=== PATIENT | female | born 1985 | race Caucasian/White ===

== ENCOUNTER 2021-09-23 07:32 | Emergency (ER) | payer BC, SELFPAY ==
[2021-09-23 07:38] VITALS: BP 151/95; PULSE 97; RESP 18; TEMP 36.1; O2SAT 98; BMI 26.6
--- NOTE | 2021-09-23 08:18 | CT_ITS ---
Final Report Patient: ASHISH FONSECA Facility:?[facility] Patient ID:?[id number] Site Patient ID:?[id number]. Site :?[id number] Study:?CT Head W/O-09/23/2021 8:33:15 AM Ordering Physician:?Lorenza Epps Final Report: INDICATION: Right-sided headache. TECHNIQUE: CT head without contrast. COMPARISON: None. FINDINGS: CSF spaces: Within normal limits for age. Brain parenchyma and extra-axial spaces: The ryan-white differentiation is normal. No sign of mass, hemorrhage, or midline shift. No extra-axial fluid collection. Skull base and calvarium: The visualized paranasal sinuses and mastoid air cells demonstrate no acute or significant findings. The visualized orbits are grossly unremarkable. No skull fractures. IMPRESSION: Unremarkable noncontrast head CT. Please note that all CT scans at this facility use dose modulation, iterative reconstruction, and/or weight-based dosing when appropriate to reduce radiation dose to as low as reasonably achievable. Dictated by Noam Wooten MD @ 09/23/2021 8:43:50 AM (Electronic Signature)
[2021-09-23 08:52] LABS: Basophils Absolute Auto 0.04 K/uL (0.00-0.30); Basophils Percent Auto 0.6 % (0.0-3.0); Eosinophils Absolute Auto 0.13 K/uL (0.00-0.50); Eosinophils Percent Auto 2.1 % (0.0-7.0); Hematocrit 40.9 % (33.0-51.0); Hemoglobin* 13.3 gm/dL (12.0-16.0); Immature Granulocytes Abs Auto 0.02 K/uL (0.00-0.30); Lymphocytes Absolute Auto 2.01 K/uL (0.90-2.90); Lymphocytes Percent Auto 32.3 % (20-44); Mean Corpuscular HGB Conc 33 gm/dL (32-36); Mean Corpuscular Hemoglobin 29 pg (26-34); Mean Corpuscular Volume 89 fL (80-100); Monocytes Percent Auto 7.1 % (0.0-11.0); Neutrophils Absolute Auto 3.59 K/uL (1.7-7.0); Neutrophils Percent Auto 57.6 % (42.0-72.0); Platelet Count* 253 K/uL (140-440); RDW Coefficient of Variation % 13.1 % (11.5-15.5); Red Blood Count 4.62 m/uL (4.00-5.20); White Blood Count* 6.23 K/uL (4.50-11.00)
[2021-09-23] MEDS: METOCLOPRAMIDE HCL 5 MG/ML INJ 10 MG IVP (09:02)
[2021-09-23] MEDS: KETOROLAC 30 MG/ML inj IVP (09:02)
[2021-09-23] MEDS: diphenhydrAMINE 50 MG/ML inj 25 MG IVP (09:02)
[2021-09-23] MEDS: 0.9 % SODIUM CHLORIDE 1000 ml 1,000 ML IV (09:04)
[2021-09-23 09:09] LABS: Slide Review Reflex No
[2021-09-23 09:12] LABS: Chloride* 103 mmol/L (96-114); Potassium* 3.5 mmol/L (3.6-5.1); Sodium* 138 mmol/L (135-149)
[2021-09-23 09:15] LABS: Creatinine* 0.7 mg/dL (0.5-1.5); Est. Creatinine Clearance* 96.86; Estimated Glomerular Filt Rate 116 ml/min
[2021-09-23 09:16] LABS: Blood Urea Nitrogen* 12 mg/dL (5-24); Calcium* 9.6 mg/dL (8.4-10.6); Carbon Dioxide* 27 mmol/L (20-32); Glucose* 115 mg/dL (60-115)
[2021-09-23 09:23] LABS: C Reactive Protein* < 0.5 mg/dL (0.5-1.0)
--- NOTE | 2021-09-23 09:25 | ED_ITS ---
HPI - Headache General Date Seen: 09/23/21 Chief Complaint: Dental/Oral/Mouth Injury/Pain Stated Complaint: Right side tooth infection Time Seen by Provider: 09/23/21 07:54 Source: patient and family Mode of arrival: ambulatory Limitations: no limitations History of Present Illness HPI Narrative: Patient is 36-year-old female presents here with her significant other for which she describes is migraine headache in the setting of not having migraines before. The last 12-24 hours she has noted right-sided head discomfort, along with a feeling of altered sensation over the right side of her face. She initially described as numbness to me. She wonders if this is due to a dental issues but really has no tooth pain associated with this. Pain radiates from behind her right eye to the her back of her head. No thunderclap presentation was more gradual. She has done some reading online and wonders if the tooth infection is gone up into her sinus. Has no nasal discharge however with this there is some pain around her right ear also. She denies any fevers chills or sweats. She says she has a bit of a stiff neck associated with this but no rash. She has had no nausea vomiting, and the light does bother her eyes slightly. No history of trauma or falls, and there is no family history of migraine headaches in any the female family members. She has not tried any treatment for this, and came to the emergency room thinking this may be a dental issue. MD elicited complaint: migraine Onset (ago): hour(s) Onset description: gradually Location: right, frontal, temporal and occipital Severity: severe Quality & Timing: aching, throbbing and constant Exacerbating factors: movement of head/neck, sitting/standing, light and noise Relieving factors: nothing Context: occurred at rest Associated symptoms: none and neck stiffness Treatments prior to arrival: none Related Data Home Medications Medication Instructions Recorded Confirmed No Known Home Medications 09/23/21 09/23/21 Allergies Allergy/AdvReac Type Severity Reaction Status Date / Time No Known Drug Allergies Allergy Verified 09/23/21 07:38 Review of Systems Status of ROS: Reports: 10 or more systems reviewed and unremarkable except as noted in History and below PFSH PFS Social History Smoking Status: Former smoker Do you use any of these nicotine containing products: E-Cigarettes and Vaping Products How often do you have a drink containing alcohol: 2-3 times a week How often do you have six or more drinks on one occasion: Less than monthly AUDIT-C Alcohol total score: 4 Non-prescribed substance use: denies use Exam Narrative: Exam Narrative: Patient sitting in room 4 dental chair in no apparent distress speaking to me normally lucid oriented x3. Her pupils are equal round reactive to light there is no scleral icterus redness TMs are normal oropharynx normal there is no adenopathy anterior posterior chains her neck is supple full range of motion is listed with absence of meningismus. I do not see any evidence of any redness swelling or noted bowl pain on palpation over the right side of her head around her ear or around her jaw. There is no swelling noted mouth opening is normal on palpation of her teeth reveals no tenderness at all and her gum seem normal. Oropharynx is otherwise normal with no tonsillar enlargement redness swelling there is no lymphadenopathy anterior posterior chains notable in her thyroid is normal midline palpable. Chest is clear heart sounds are normal skin was no petechiae or rashes fine motor movements fingers nose testing are normal and she is able to walk normally. Const: Vital Signs, click to edit/add: Vital Signs - 24 hr 09/23/21 07:38 Temperature 97.0 F L Pulse Rate [Right Pulse Oximeter] 97 Respiratory Rate 18 Blood Pressure [Le ft Upper Arm] 151/95 H Pulse Oximetry 98 Documenting provider has reviewed patient's vital signs: yes Common normals: no apparent distress Course Course Hospital Course: I discussed with the patient that all her laboratory tests were normal her head CT was normal she reported to me her headache was a lot better with the treatment. Fell long enough to go home. I think this would be reasonable now to let her go home she has no high risk features. I do believe this is most likely a migraine headache. She has worsening signs and symptoms she needs to come back and be seen, she was comfortable with this plan. Vital Signs Vital signs: Initial Vital Signs Temperature 97.0 F L 09/23/21 07:38 Temperature Source Temporal Artery Scan 09/23/21 07:38 Pulse Rate 97 09/23/21 07:38 Respiratory Rate 18 09/23/21 07:38 Blood Pressure 151/95 H 09/23/21 07:38 Blood Pressure Mean 113 09/23/21 07:38 Pulse Oximetry 98 09/23/21 07:38 Oxygen Delivery Method 09/23/21 07:38 Vital Signs Temperature 97.0 F L 09/23/21 07:38 Pulse Rate 97 09/23/21 07:38 Respiratory Rate 18 09/23/21 07:38 Blood Pressure 151/95 H 09/23/21 07:38 Pulse Oximetry 98 09/23/21 07:38 Temperature 97.0 F L 09/23/21 07:38 Pulse Rate 97 09/23/21 07:38 Respiratory Rate 18 09/23/21 07:38 Blood Pressure 151/95 H 09/23/21 07:38 Pulse Oximetry 98 09/23/21 07:38 MDM - Headache MDM Narrative Medical decision making narrative: Life-threatening differential diagnosis include subarachnoid hemorrhage, meningitis, encephalitis, carbon monoxide poisoning, and intracerebral hemorrhage. Other differential diagnosis include but not limited to migraine, cluster headache, tension headache, [employer] vasculitis, mass lesion, temporal arteritis, click acute closed angle glaucoma, septal and trigeminal neuralgia, sinusitis, closed head injury, and stroke I discussed with the patient that I think that this is more of a migraine I do not think this is a dental issue I would suggest at this point IV fluids laboratory tests CT scan for further delineation. She looks however well. Neurologically intact. Medical Records Attestation: I reviewed the patient's medical records. Lab Data Labs: Lab Results 09/23/21 09/23/21 09/23/21 Range/Units 08:45 08:45 08:45 WBC 6.23 (4.50-11.00) K/uL RBC 4.62 (4.00-5.20) m/uL Hgb 13.3 (12.0-16.0) gm/dL Hct 40.9 (33.0-51.0) % MCV 89 (80-100) fL MCH 29 (26-34) pg MCHC 33 (32-36) gm/dL RDW Coeff of [place] 13.1 (11.5-15.5) % Plt Count 253 (140-440) K/uL Neut % (Auto) 57.6 (42.0-72.0) % Lymph % (Auto) 32.3 (20-44) % Edmonson % (Auto) 7.1 (0.0-11.0) % Eos % (Auto) 2.1 (0.0-7.0) % Baso % (Auto) 0.6 (0.0-3.0) % Neut # (Auto) 3.59 (1.7-7.0) K/uL Lymph # (Auto) 2.01 (0.90-2.90) K/uL Edmonson # (Auto) 0.40 (0.00-0.90) K/UL Eos # (Auto) 0.13 (0.00-0.50) K/uL Baso # (Auto) 0.04 (0.00-0.30) K/uL Abs Immat Gran (auto) 0.02 (0.00-0.30) K/uL Sodium 138 (135-149) mmol/L Potassium 3.5 L (3.6-5.1) mmol/L Chloride 103 (96-114) mmol/L Carbon Dioxide 27 (20-32) mmol/L BUN 12 (5-24) mg/dL Creatinine 0.7 (0.5-1.5) mg/dL Estimated Creat Clear 96.86 Estimated GFR 116 ml/min Glucose 115 (60-115) mg/dL Calcium 9.6 (8.4-10.6) mg/dL C-Reactive Protein < 0.5 L (0.5-1.0) mg/dL HCG, Qual Negative (Negative) Discharge Plan Discharge Clinical Impression: Head ache, Migraine Patient Disposition: Home w/ Parent or Adult Condition: Improved Instructions: Migraine Headache (ED) Additional Instructions: Home rest and sleep. Your laboratory work including CT scan did not show any acute issues. Would recommend taking it easy for the rest of the day in you may take some ibuprofen 800 mg when you get home along with some caffeine. Follow- up with primary care for recheck as needed. Return here if worsening signs and symptoms. As I discussed with you I do not see evidence of a tooth issue causing this. But of visit your dentist if he still have ongoing concerns would be appropriate Prescriptions: No Action No Known Home Medications 0RF Follow Up/Referrals: Robinson Crook MD [Primary Care Provider] - Stand Alone Forms: [employer] Info Instructions
[2021-09-23 09:36] LABS: HCG Qualitative Serum* Negative (Negative)
== END 2021-09-23 10:44 | disposition home or self-care (01) ==
PROVIDERS: Emergency Provider Family Medicine; PCP Family Medicine
DX: R51.9 Headache, unspecified (principal)
CPT/HCPCS: 36415; 70450; 80048; 84703; 85025; 86140; 96374; 96375; 99284; J1200; J1885; J2765; J7030

== ENCOUNTER 2021-11-26 17:37 | Emergency (ER) | payer BC, SELFPAY ==
[2021-11-26 18:10] VITALS: BP 143/104; PULSE 102; RESP 16; TEMP 37; O2SAT 100; BMI 29.2
[2021-11-26 19:02] LABS: Strep A DNA Probe* DETECTED (No Detected)
--- NOTE | 2021-11-26 19:21 | ED.GENADULT ---
HPI - General Adult General Date Seen: 11/26/21 Chief complaint: Sore Throat Stated complaint: Throat pain, fever Time Seen by Provider: 11/26/21 19:00 Source: patient History of Present Illness HPI narrative: Patient is a 36-year-old woman who presents with couple of days sore throat and bilateral ear pain. Subjective fever. No other symptoms. Concerned about possible strep throat. Declines COVID testing. Related Data Home Medications Medication Instructions Recorded Confirmed No Known Home Medications 09/23/21 11/26/21 Allergies Allergy/AdvReac Type Severity Reaction Status Date / Time No Known Drug Allergies Allergy Verified 11/26/21 18:16 Review of Systems Status of ROS: Reports: 6 or more systems reviewed and unremarkable except as noted in History and below PFSH PFS Social History Smoking Status: Former smoker Do you use any of these nicotine containing products: E-Cigarettes and Vaping Products Second hand tobacco smoke exposure: No How often do you have a drink containing alcohol: 2-3 times a week How often do you have six or more drinks on one occasion: Less than monthly AUDIT-C Alcohol total score: 4 Non-prescribed substance use: denies use service: No Exam Narrative: Exam Narrative: Vital signs as noted above. In general, an alert, well-appearing patient. Voice is normal. Head: Normocephalic, atraumatic. Eyes: Pupils are equal reactive. Extraocular movements are full. Conjunctivae are normal. ENT: Mucous membranes are moist. Throat is normal, no significant erythema, tonsils show no edema or exudate. Neck: Supple with a couple of enlarged anterior cervical nodes. Heart: Regular rate and rhythm. No murmur or rub. Lungs: Clear bilaterally. No increased work of breathing, crackles or wheezes. Neurologic: Patient is alert and oriented to person and place. Speech is fluent. Face is symmetric. Moves all extremities equally. Affect: Normal. Skin: Warm and dry. Well perfused. Const: Vital Signs, click to edit/add: Vital Signs - 24 hr 11/26/21 18:10 Temperature 98.6 F Pulse Rate [Right Pulse Oximeter] 102 H Respiratory Rate 16 Blood Pressure [Ri ght Upper Arm] 143/104 H Pulse Oximetry 100 Oxygen Delivery Me thod Room Air Course Course Hospital Course: Strep screen was obtained and returned positive. Will treat with amoxicillin. Ibuprofen or Tylenol as needed. No evidence of exudate of tonsillitis or abscess. Return for worsening. Vital Signs Vital signs: Initial Vital Signs Temperature 98.6 F 11/26/21 18:10 Temperature Source Temporal Artery Scan 11/26/21 18:10 Pulse Rate 102 H 11/26/21 18:10 Respiratory Rate 16 11/26/21 18:10 Blood Pressure 143/104 H 11/26/21 18:10 Blood Pressure Mean 117 11/26/21 18:10 Blood Pressure Position Sitting 11/26/21 18:10 Pulse Oximetry 100 11/26/21 18:10 Oxygen Delivery Method 11/26/21 18:10 Vital Signs Temperature 98.6 F 11/26/21 18:10 Pulse Rate 102 H 11/26/21 18:10 Respiratory Rate 16 11/26/21 18:10 Blood Pressure 143/104 H 11/26/21 18:10 Pulse Oximetry 100 11/26/21 18:10 Oxygen Delivery Method 11/26/21 18:10 Temperature 98.6 F 11/26/21 18:10 Pulse Rate 102 H 11/26/21 18:10 Respiratory Rate 16 11/26/21 18:10 Blood Pressure 143/104 H 11/26/21 18:10 Pulse Oximetry 100 11/26/21 18:10 Oxygen Delivery Method 11/26/21 18:10 Medical Decision Making Lab Data Labs: Lab Results 11/26/21 Range/Units 18:23 Group A Strep DNA DETECTED (No Detected) Discharge Plan Discharge Clinical Impression: Strep pharyngitis Patient Disposition: Home, Self-Care Condition: Stable Instructions: Strep Throat (DC) Additional Instructions: Antibiotics as prescribed. Ibuprofen or Tylenol as needed. Return for worsening. Prescriptions: No Action No Known Home Medications Follow Up/Referrals: Robinson Crook MD [Primary Care Provider] - Stand Alone Forms: [employer] Info Instructions
== END 2021-11-26 19:49 | disposition home or self-care (01) ==
PROVIDERS: Emergency Provider Emergency Medicine; PCP Family Medicine
DX: J02.0 Streptococcal pharyngitis (principal)
CPT/HCPCS: 87651; 99283; 99284

== ENCOUNTER 2022-11-08 14:15 | Emergency (ER) | payer BC, SELFPAY ==
[2022-11-08 14:24] VITALS: BP 157/114; PULSE 103; RESP 18; TEMP 36.6; O2SAT 97; BMI 26.6
[2022-11-08 15:21] LABS: Strep A DNA Probe* DETECTED (Not Detectd)
--- NOTE | 2022-11-08 15:33 | ED_ITS ---
HPI - General Adult General Chief complaint: Fever Stated complaint: Sore throat Time Seen by Provider: 11/08/22 15:26 History of Present Illness HPI narrative: This 37-year-old female comes in reporting sore throat for the past 2 or 3 days. She does not have any cough or nasal congestion. She is suspicious of a strep infection and is requesting a strep test but denies having COVID, influenza test. Related Data Previous Rx's Medication Instructions Recorded amoxicillin 500 mg capsule 500 mg PO TID 7 days #21 caps 11/08/22 ketorolac 10 mg tablet 10 mg PO TID 5 days #15 tabs 11/08/22 Allergies Allergy/AdvReac Type Severity Reaction Status Date / Time No Known Drug Allergies Allergy Verified 11/08/22 14:23 Review of Systems Status of ROS: Reports: 10 or more systems reviewed and unremarkable except as noted in History and below Narrative: Constitutional: No fevers, no weight gain or loss. Eyes: No discharge. No vision changes. HENT: No congestion, no ear pain. Sore throat. She reports a headache. Cardiovascular: No chest pain, no palpitations. Respiratory: No shortness of breath, no wheezes, no cough. Gastrointestinal: No abdominal pain, no vomiting, no diarrhea. Genitourinary: No dysuria, no hematuria. Musculoskeletal: Normal range of motion. Skin: No rashes, no pruritis. Neurological: No dizziness, weakness, sensory change, speech change. Endo/Heme/Allergies: No bruising or bleeding. No polydipsia. Pysch: no suicidality, no anxiety, no insomnia. All other systems reviewed and are negative. PFSH [facility] Social History Smoking Status: Former smoker Do you use any of these nicotine containing products: E-Cigarettes and Vaping Products Second hand tobacco smoke exposure: No How often do you have a drink containing alcohol: 2-3 times a week How often do you have six or more drinks on one occasion: Less than monthly AUDIT-C Alcohol total score: 4 Non-prescribed substance use: denies use service: No Exam Narrative: Exam Narrative: Constitutional: Well-developed, well-nourished, no acute distress. HEENT: Normocephalic, atraumatic. Oropharynx has erythema without exudate or tonsillar hypertrophy. Neck: Normal range of motion. Nontender. Supple. Heart: Intact distal pulses. Lungs: No chest discomfort. No wheezes, rhonchi, or rales. Abdomen: Nontender. Back: Normal range of motion. Extremities: Normal range of motion. No injury. Skin: Intact. No rash. Warm. No erythema or pallor. Neurologic: No altered sensation. No weakness. Alert and oriented. Psychiatric: No suicidality. No anxiety or depression. No insomnia. Nursing notes and vitals signs are reviewed. Const: Vital Signs, click to edit/add: Vital Signs - 24 hr 11/08/22 14:24 Temperature 97.9 F Pulse Rate [Pulse Oximeter] 103 H Respiratory Rate 18 Blood Pressure [Ri ght Upper Arm] 157/114 H Pulse Oximetry 97 Oxygen Delivery Me thod Room Air Course Vital Signs Vital signs: Initial Vital Signs Temperature 97.9 F 11/08/22 14:24 Temperature Source Temporal Artery Scan 11/08/22 14:24 Pulse Rate 103 H 11/08/22 14:24 Respiratory Rate 18 11/08/22 14:24 Blood Pressure 157/114 H 11/08/22 14:24 Blood Pressure Mean 128 H 11/08/22 14:24 Blood Pressure Position Sitting 11/08/22 14:24 Pulse Oximetry 97 11/08/22 14:24 Oxygen Delivery Method Room Air 11/08/22 14:24 Vital Signs Temperature 97.9 F 11/08/22 14:24 Pulse Rate 103 H 11/08/22 14:24 Respiratory Rate 18 11/08/22 14:24 Blood Pressure 157/114 H 11/08/22 14:24 Pulse Oximetry 97 11/08/22 14:24 Oxygen Delivery Method Room Air 11/08/22 14:24 Temperature 97.9 F 11/08/22 14:24 Pulse Rate 103 H 11/08/22 14:24 Respiratory Rate 18 11/08/22 14:24 Blood Pressure 157/114 H 11/08/22 14:24 Pulse Oximetry 97 11/08/22 14:24 Oxygen Delivery Method Room Air 11/08/22 14:24 Medical Decision Making MDM Narrative Medical decision making narrative: A rapid strep test is performed and returns positive. The patient received an oral dose of dexamethasone 10 mg and prescriptions for amoxicillin and Toradol. She is encouraged to use Tylenol also as needed and directed. Lab Data Labs: Lab Results 11/08/22 Range/Units 14:30 Group A Strep DNA DETECTED A (Not Detectd) Discharge Plan Discharge Clinical Impression: Strep pharyngitis Patient Disposition: Home, Self-Care Condition: Unchanged Additional Instructions: Take medication as prescribed. Follow up with MD or return if worsening. Prescriptions: New amoxicillin 500 mg capsule 500 mg PO TID 7 Days Qty: 21 0RF ketorolac 10 mg tablet 10 mg PO TID 5 Days Qty: 15 0RF Follow Up/Referrals: Robinson Crook MD [Primary Care Provider] - Stand Alone Forms: [employer] Info Instructions
== END 2022-11-08 15:49 | disposition home or self-care (01) ==
LOC: ED 15:45
PROVIDERS: Emergency Provider Emergency Medicine Emergency Medical Services; PCP Family Medicine
DX: J02.0 Streptococcal pharyngitis (principal)
CPT/HCPCS: 87651; 99282; 99283; 99284

== ENCOUNTER 2023-02-21 10:44 | Emergency (ER) | payer BC, SELFPAY ==
[2023-02-21 10:59] VITALS: BP 138/102; PULSE 106; RESP 18; TEMP 36.6; O2SAT 99; BMI 30.9
--- NOTE | 2023-02-21 11:09 | ED_ITS ---
HPI - Headache General Time Seen by Provider: 11:09 Date Seen: 02/21/23 Chief Complaint: Headache/Migraine Stated Complaint: migraine Time Seen by Provider: 02/21/23 11:01 Source: patient and RN notes reviewed Mode of arrival: ambulatory Limitations: no limitations History of Present Illness HPI Narrative: Mila is 37-year-old female coming in with complaint of right-sided headache behind her eye. She has photophobia with this, phonophobia. She has vomited 4 times. She did try Tylenol and Imitrex which usually works for her. She states it is not working today. She admits stress due to Tracey, awoke at 6:30 a.m. and had the headache this morning. There is no numbness tingling, does note the right eye a maybe feels a little blurry. She drove herself in, her arms and legs are working normally. Her speech is normal. She is tearful and wonders if it is a brain tumor because her medicines are working. IA did review her chart, was in August of 2021, did have a normal CT at that point for a right-sided headache. She states it is typical cold to get them behind her right eye. She is just worried as the medicines are not working this time. She states the medicines we gave her last time did work. I see that she got normal saline, Reglan and Benadryl, Toradol and Ativan. She states she can get a ride home, reviewed with her that these are not medicines that she can not drive with because they are sedating and can affect her mental status. She has not been sick with anything, no fevers chills, no respiratory symptoms. MD elicited complaint: headache and migraine Related Data Previous Rx's Medication Instructions Recorded azithromycin 250 mg tablet See Rx Instructions PO .COMPLEX #6 01/28/23 tabs codeine 10 mg-guaifenesin 100 mg/5 10 ml feeding tube Q4-6H PRN cough 01/28/23 mL oral liquid #120 mL Allergies Allergy/AdvReac Type Severity Reaction Status Date / Time No Known Drug Allergies Allergy Verified 01/28/23 18:34 Review of Systems Status of ROS: Reports: 6 or more systems reviewed and unremarkable except as noted in History and below PFSH PFSH Social History Smoking Status: Former smoker Do you use any of these nicotine containing products: E-Cigarettes and Vaping Products Second hand tobacco smoke exposure: No How often do you have a drink containing alcohol: 2-3 times a week How often do you have six or more drinks on one occasion: Less than monthly AUDIT-C Alcohol total score: 4 Non-prescribed substance use: denies use service: No Exam Const: Vital Signs, click to edit/add: Vital Signs - 24 hr 02/21/23 10:59 02/21/23 11:16 Temperature 97.9 F 97.9 F Pulse Rate [Pulse Oximeter] 106 H 106 H Respiratory Rate 18 18 Blood Pressure [Le ft Upper Arm] 138/102 H 153/104 H Pulse Oximetry 99 97 Oxygen Delivery Me thod Room Air Patient is tearful, distressed but alert and interactive. She certainly seems anxious. She did settle down by the end of our interaction. Pupils equal round, extraocular movements intact, sclera clear. TMs are normal. No drainage from anterior nares. Oropharynx with normal mucosa, tongue protrudes midline, normal palatal elevation, no exudates or erythema. Neck is supple, no midline tenderness over back. Lungs are clear, good air entry, no wheezing or crackles. CV regular rate and rhythm, no murmur, normal S1-S2 no S3-S4. Abdomen is soft, non tender nondistended. Strength is 5 5 and symmetric throughout upper extremities, lower extremities. Normal light touch sensation. No arm drift, no tremors, gait was normal coming in, she walked in of her own accord. Documenting provider has reviewed patient's vital signs: yes Course Course ED Course: This patient and I discussed [place] [employer] recommendations for neuro imaging with headaches. She really does not support the need for neuro imaging at this time. I have reassured her that she has no neurologic changes, it is not necessarily atypical that sometimes migraine oral abortive medicines may not work. We will start with IV medicines, she will find a courtesy van driver home. She can come pick her car back up tomorrow or have somebody driving home for her today. We will see how she responds to the medicines and on guide therapy accordingly. This certainly seems like a typical headache and she did have a CT scan in August of 2021. Reevaluation(s) Time of Reevaluation #1: 12:45 Reevaluation #1: Patient is awoken, is feeling better. She has a ride home, she will call. Vital Signs Vital signs: Initial Vital Signs Temperature 97.9 F 02/21/23 10:59 Temperature Source Temporal Artery Scan 02/21/23 10:59 Pulse Rate 106 H 02/21/23 10:59 Pulse Rhythm Regular 02/21/23 10:59 Respiratory Rate 18 02/21/23 10:59 Blood Pressure 138/102 H 02/21/23 10:59 Blood Pressure Mean 114 H 02/21/23 10:59 Blood Pressure Position Supine 02/21/23 10:59 Pulse Oximetry 99 02/21/23 10:59 Vital Signs Temperature 97.9 F 02/21/23 10:59 Pulse Rate 106 H 02/21/23 10:59 Respiratory Rate 18 02/21/23 10:59 Blood Pressure 138/102 H 02/21/23 10:59 Pulse Oximetry 99 02/21/23 10:59 Temperature 97.9 F 02/21/23 11:16 Pulse Rate 106 H 02/21/23 11:16 Respiratory Rate 18 02/21/23 11:16 Blood Pressure 153/104 H 02/21/23 11:16 Pulse Oximetry 97 02/21/23 11:16 Oxygen Delivery Method Room Air 02/21/23 11:16 Medications Administered Medications: Discontinued Medications Generic Name Dose Route Start Last Admin Trade Name Freq PRN Reason Stop Dose Admin Diphenhydramine HCl 25 mg 02/21/23 11:21 02/21/23 11:43 Diphenhydramine 50 Mg/Ml Inj IVP 02/21/23 11:22 25 mg ONCE ONE Administration Sodium Chloride 1,000 mls @ 1,000 mls/hr 02/21/23 11:21 02/21/23 11:44 0.9 % Sodium Chloride 1000 Ml IV 02/21/23 12:20 1,000 mls/hr .Q1H GRETCHEN Administration Ketorolac Tromethamine 15 mg 02/21/23 11:21 02/21/23 11:43 Ketorolac 15 Mg/Ml Inj IVP 02/21/23 11:22 15 mg ONCE ONE Administration Metoclopramide HCl 10 mg 02/21/23 11:45 02/21/23 11:49 Metoclopramide Hcl 5 Mg/Ml Inj IVP 02/21/23 11:46 10 mg ONCE ONE Administration Discharge Plan Discharge Clinical Impression: Migraine Patient Disposition: Home, Self-Care Condition: Stable Instructions: Migraine Headache (ED) Additional Instructions: Go home and rest, stay hydrated. Can use Tylenol and ibuprofen per bottle directions if you have any residual headache. Would try to eat something when you feel up to it. It is important you rest and stay hydrated, would not recommend any alcohol today. These tactics can help paco further migraine headache. If your headache is worsening and not responsive to home remedies, can return for further evaluation and treatment here. Activity Level: Activity as Tolerated Discharge Diet: Regular Prescriptions: No Action azithromycin 250 mg tablet See Rx Instructions PO .COMPLEX Qty: 6 0RF Rx Instructions: For 250 mg dose pack: take 500 mg today (day 1), then 250 mg for 4 days (days 2-5) PO codeine-guaifenesin 10-100 mg/5 mL liquid 10 ml feeding tube Q4-6H PRN (Reason: cough) Qty: 120 0RF Follow Up/Referrals: Robinson Crook MD [Primary Care Provider] - Stand Alone Forms: Our Security Team Info Instructions
[2023-02-21 11:16] VITALS: BP 153/104; PULSE 106; RESP 18; TEMP 36.6; O2SAT 97
[2023-02-21] MEDS: KETOROLAC 15 MG/ML inj IVP (11:43)
[2023-02-21] MEDS: diphenhydrAMINE 50 MG/ML inj 25 MG IVP (11:43)
[2023-02-21] MEDS: 0.9 % SODIUM CHLORIDE 1000 ml 1,000 ML IV (11:44)
[2023-02-21] MEDS: METOCLOPRAMIDE HCL 5 MG/ML INJ 10 MG IVP (11:49)
[2023-02-21 12:47] VITALS: BP 135/92; PULSE 96; RESP 18; O2SAT 96
[2023-02-21 13:05] VITALS: BP 135/92; PULSE 96; RESP 18; TEMP 36.6
== END 2023-02-21 13:06 | disposition home or self-care (01) ==
PROVIDERS: Emergency Provider Family Medicine; PCP Family Medicine
DX: G43.909 Migraine, unspecified, not intractable, without status migrainosus (principal)
CPT/HCPCS: 96374; 96375; 99284; J1200; J1885; J2765; J7030

== ENCOUNTER 2024-08-20 08:07 | Emergency (ER) | payer BC, SELFPAY ==
--- OUTSIDE RECORDS SUMMARY | 2024-08-20 08:08 | XMS_ITS | Clinical Summary ---
Author Organization [employer] [facility] Address [address] [place] [id number] Care Team Providers Care Title Insurance Examiner Name Role Phone Robinson Crook MD Primary Care Provider [phone]- [phone] Allergies No known active allergies Medications ibuprofen (ADVIL; MOTRIN) 800 mg tabletIndicatio ns:Neck pain, acute,Injury of neck, subsequent encounter TAKE 1 TABLET BY MOUTH EVERY 8 HOURS NEEDED 90 tablet 0 Active acetaminophen (TYLENOL EXTRA STRGTH) 500 mg tabletIndicatio ns:Neck pain, acute,Injury of neck, subsequent encounter Take 2 tablets by mouth 3 times daily. Max acetaminophen dose: 4000mg in 24 hrs. 180 tablet 6 0 Active hydrOXYzine pamoate (VISTARIL) 50 mg capsule Take 50 mg by mouth every 6 hours if needed for Anxiety. 3 Active SUMAtriptan (IMITREX) 50 mg tabletIndicatio ns:Migraine without aura and without status migrainosus, not intractable Take 1 Tablet (50 mg) by mouth 2 times daily if needed for Migraine. Give at minimum 2hrs apart. Max Dose: 200mg per 24hrs. 20 Tablet 4 Active Active Problems Problem Noted Date Diagnosed Date Migraine without aura and wi thout status migrainosus, not intractable 12/25/2022 care in second trimester 08/06/2016 Overview (12/29/2016): Blood type AB positive [place] test negative. It's a boy! Will see Dr Crook for care while Dr Saini gone. Delivering physician Dr Saini. Patient requests Dr Armaan hernandez and care in hospital if able. Induced last 4 pregnancies. GBS POSITIVE Estimated Date of Delivery: 01/11/17 Patient's last menstrual period was 04/06/2016 (approximate). Last Tdap- 11/25/2016 Last Flu vaccine- 04/08/2010 No Known Allergies Obstetric History T4 L4 SAB0 TAB0 Ectopic0 Multiple0 Live Births1 # Outcome Date GA Lbr Sudhir/2nd Weight Sex Delivery Anes PTL Lv 5 Current 4 Term 03/09/15 39w6d JANELL 3 Term 01/19/14 40w1d F VAGINAL MARQUES N JANELL 2 Term 03/02/07 40w1d F VAGINAL MARQUES N JANELL 1 Term 12/25/04 41w0d 09:45 3.033 kg (6 lb 11 oz) F Vag JANELL Apgar1: 8 Apgar5: 9 Component Latest Ref Rng & Units 05/20/2016 05/20/2016 05/20/2016 4:00 PM 4:00 PM 4:00 PM TRICHOMONAS YEAST CLUE CELLS ANTIBODY SCREEN Negative Negative SPECIMEN EXPIRATION DATE/TIME 05/23/16 23:59 HEMOGLOBIN 12.0 - 16.0 g/dL 13.9 MCV 80 - 100 fL 88 RUBELLA IGG ANTIBODY Positive 3.27 GLUCOSE,GESTATIONAL 65 - 139 mg/dL PATIENT STATUS CHLAMYDIA PROBE N GONORRHOEAE PROBE HEMOGLOBIN A1C SCREENING <6.4 % 5.3 ABORH AB Rh Positive HBSAG Nonreactive Nonreactive HEPATITIS C ANTIBODY Non-Reactive Non-Reactive HIV-1/HIV-2 ANTIBODY Non-Reactive Non-Reactive TREPONEMA PALLIDUM Negative Negative Component Latest Ref Rng & Units 10/14/2016 10/16/2016 12/09/2016 TRICHOMONAS None Seen YEAST None Seen CLUE CELLS None Seen ANTIBODY SCREEN Negative SPECIMEN EXPIRATION DATE/TIME HEMOGLOBIN 12.0 - 16.0 g/dL 11.9 (L) MCV 80 - 100 fL 89 RUBELLA IGG ANTIBODY GLUCOSE,GESTATIONAL 65 - 139 mg/dL 117 PATIENT STATUS FASTING CHLAMYDIA PROBE Negative N GONORRHOEAE PROBE Negative HEMOGLOBIN A1C SCREENING <6.4 % ABORH HBSAG Nonreactive HEPATITIS C ANTIBODY Non-Reactive HIV-1/HIV-2 ANTIBODY Non-Reactive TREPONEMA PALLIDUM Negative Component Latest Ref Rng & Units 12/09/2016 12:02 PM Culture Streptococcus Group B Past Medical History: Diagnosis Date Anemia of mother, complicating , childbirth, or the puerperium, unspecified as to episode of care(648.20) Resolved Dysthymic disorder Resolved Tobacco use disorder Past Surgical History: Procedure Laterality Date ME US ULTRASOUND GUIDANCE IUD PLACEMENT 09-26-07 TONSIL AND ADENOIDECTOMY 2003 VAGINAL DELIVERY 2004 and 2007 No data on file. 5th Problems (from 05/20/16 to present) No problems associated with this episode. KIP Corrales.....12/10/2016 7:28 AM Pelvic pressure in , antepartum 014 Anemia, unspecified 10/11/2013 Acne 12/28/2012 Herpes simplex without mention of complication 0 03/04/2009 Overview (12/27/2013): Only cold sores around the mouth. Nothing vaginal. Resolved Problems Problem Noted Date Diagnosed Date Resolved Date Marginal placenta previa 11/15/2014 care in third trimester 05/25/2013 08/06/2016 Overview (02/15/2015): TOMY 03/10/2015 by sure LMP and 03/14/2015 by 12 wk ultrasound; we are going by lmp 11/2004 6 pound 11 ounce female Lesa 18 hours of labor and 53 minutes of pushing 03/2007 7 pound 7 ounce female at 40+3 weeks 4 hours 47 minutes of labor and 4 minutes of pushing (2 pushes) Significant other Sam Boy by Ultrasound GBS POSITIVE Immunizations Immunization Administration Dates Next Due DTP 06/14/1991,01/27/1991,09/08/1990 DTaP 06/14/1991, 2,01/27/1991,1990 HIB PRP-OMP (PedvaxHIB) 01/24/1991 Hib Conjugate, Unspecified 01/24/1991 Inactivated Polio Vaccine 06/14/1991,01/27/1991, 09/08/1990 Influenza, IIV3 (Age >=3 years) 04/08/2010,12/15 MMR 10/31/1998,09/08/1990 Oral Polio Vaccine 06/14/1991,01/27/1991, 991 Td (Age >=7 Years) 08/18/2005,10/31/1998 Td, Preservative Free (age > = 7 Years) 08/18/2005 Tdap 11/25/2016,02/11/2015,11/29/2013 Tuberculin (PPD) 05/27/2020 Family History Medical History Relation Name Comments Good Health Daughter 1 Lesa Good Health Daughter 2 Monique Alcohol/Drug Father Hypertension Father Lung cancer Father Unknown Maternal Grandfather Psychiatric illness Maternal Grandmother schizophrenia, emphysema Good Health Mother Other Mother Tool Dispatcher problems, n o cancers Heart Disease Paternal Grandfather heart surgery; stent placement. Heart Disease Paternal Grandmother heart surgery; stent placement. Other Sister 3 Destiny half sister; br ain tumor and heart problems Good Health Sister 4 Apolinar half sister, Other Sister 5 Abnormal pap sm ear, Had a LEEP? Relation Name Status Comments Daughter 1 Lesa Daughter 2 Monique Father November 2016 Maternal Grandfather Alive Maternal Grandmother Alive Mother Alive Paternal Grandfather Alive Paternal Grandmother Alive Sister 1 Alive Sister 2 Alive Sister 3 Destiny Sister 4 Apolinar Sister 5 Social History Tobacco Use Types Packs/Day Years Used Date Smoking Tobacco: Former Cigarettes 0.5 14.8 0 2002 - 01/05/2017 Smokeless Tobacco: Never Tobacco Cessation:Counseling Given: Not Answered Alcohol Use Standard Drinks/Week Comments Yes 0 (1 standard drink = 0.6 oz pure alcohol) ocassional 1-2 drinks per week. PHQ-2 Answer Date Recorded PHQ-2 TOTAL SCORE 2 12/25/2022 Social Connections Answer Date Recorded Frequency of Communication with Friends and Fami ly 0 12/25/2022 Financial Resource Strain Answer Date R ecorded Difficulty of Paying Living Expenses 3 12/25/2022 Difficulty of Paying Living Expenses Not on file 12/25/2022 Food Insecurity Answer Date Recorded Do you worry your food will run out before you are able to buy more? 1 12/25/2022 Transportation Needs Answer Date Record ed Lack of Transportation (Medical) 1 12/25/2022 Housing Stability Answer Date Recorded What is your housing situation today? 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 Not on file Not on keisha e Not on file Obstetrics History Para Term AB IAB SAB Ectopic Multiple Livin g Live Births 5 5 5 0 0 0 0 0 0 5 2 Date Outcome GA Total Labor Labor/2nd/3rd Weight Sex Type Anes PTL Janell A1 A5 Name Clin 2004 Term 41w 0d 9h 45m/ 3.03 kg (6 lb 11 oz) F Vag Livin g 8 9 Labens ki Delivery Location:[place] Comments:Pushed for 53 minutes; 2007 Term 40w 1d F VAGINA L MARQUES N Livin g Comments:System Genera dariusz. Please review and update details. 2013 Term 40w 1d F VAGINA L MARQUES N Livin g 2015 Term 39w 6d Livin g Comments:pushed 2 hugh forrest 2016 Term 39w 1d 3.57 kg (7 lb 14 oz) M VAGINA L MARQUES Livin g Last Filed Vital Signs Vital Sign Reading Time Taken Comments Blood Pressure 145/83 12/25/2022 8:53 AM CDT Pulse 100 12/25/2022 8:53 AM CDT Temperature 36.6 C (97.8 F) 01/17/2020 2:25 PM WELFARE WORKER Respiratory Rate 18 04/08/2010 11:13 AM WELFARE WORKER Oxygen Saturation 100% 12/25/2022 8:53 AM CDT Inhaled Oxygen Concentration - - Weight 80.9 kg (178 lb 4.8 oz) 01/17/2020 2:25 P M WELFARE WORKER Height 164.5 cm (5' 4.76) 01/17/2020 2:25 PM CS T Body Mass Index 29.89 01/17/2020 2:25 PM WELFARE WORKER Plan of Treatment Health Maintenance Due Date Last Done Comments Hepatitis B series for 19+ (1 of 3 - 19+ 3-dose series) 2005 BMI (ht and wt on same day) for age 18+ 01/16/2021 01/17/2020, 01/08/2020, 12/06/2018, Additional history exists Pap test for age 21-65 12/06/2021 9, 10/05/2014, 03/21/2014, Additional history exists COVID-19 vaccine series (2023- season) 2023 Depression screening for age 12+ 12/26/2023 12/25/2022, 01/19/2020, 01/17/2020, Additional history exists Influenza Vaccine (Season Ended) 2024 04/08/2010, 12/15/2006 Tetanus booster 11/25/2026 11/25/2016, 01/29, 11/29/2013, Additional history exists HIV for age 15-65 Completed 05/20/2016, , 05/17/2013 Hepatitis C screening for age 18-79 Completed 05/20/2016, 08/27/2014 Tdap Completed 11/25/2016, 01/29, 11/29/2013 Pneumococcal series for age 6-49 Aged Out No longer eligible based on patient's age to complete this topic Procedures Procedure Name Priority Date/Time Associated Diagnosis Comments ROOF ASSEMBLER THIN PREP PAP SCREEN IMAGED Routine 12/06/2018 1:15 PM CDT Screening for cervical cancer ANTI HIV 1/2 Routine 05/20/2016 4:00 PM CDT Less than 8 weeks gestation of (HC) ANTI HCV Routine 05/20/2016 4:00 PM CDT Less than 8 weeks gestation of (HC) from Last 3 Months or Most Recently Relevant to Health Maintenance Results * ROOF ASSEMBLER THIN PREP PAP SCREEN IMAGED (12/06/2018 1:15 PM CDT) Case Report Gynecologic Cytology Report Case: [id number] Authorizing Provider: Arabella Perkins PA Collected: 12/06/2018 1315 Ordering Location: [facility] Received: 12/06/2018 1333 Clinic First Screen: Noam Toro Specimen: ROOF ASSEMBLER ThinPrep Vial Screening, Cervical 12/19/2018 2:11 PM CDT [facility]C ENTRAL LABORATORY INTERPRETATION/ RESULT NEGATIVE FOR INTRAEPITHELIAL LESION OR MALIGNANCY (NIL) (none) 12/19/2018 2:11 PM CDT [facility] ENTRAL LABORATORY at 1411 CDT ORGANISM(S) Trichomonas vaginalis 12/19/2018 2:11 PM CDT [facility] ENTR[facility] SPECIMEN ADEQUACY Satisfactory for evaluation Endocervical component present 12/19/2018 2:11 PM CDT [facility] HPV REQUEST HPV if ASCUS 12/19/2018 2:11 PM CDT [facility] Date of LMP 11/19/2018 12/19/2018 2:11 PM CDT [facility] Last Pap Date 10/05/14 12/19/2018 2:11 PM CDT [facility] Last Pap Result NIL 9 2:11 PM CDT [facility] Abnormal Pap or [place] Bx in last 5 years No 12/19/2018 2:11 PM CDT [facility] Menstrual Status Regular Periods 12/19/2018 2:11 PM CDT [facility] [place] Bx Done Today No 12/19/2018 2:11 PM CDT [facility] Additional Information None given 12/19/2018 2:11 PM CDT [facility] Automated Review Successful 12/19/2018 2:11 PM CDT [facility] Comment:Specimen processed s uccessfully by automated unindentured apprentice device, ThinPrep Imaging System, [employer] Note The pap test is a screening technique, not a diagnostic procedure. It is used primarily to screen for squamous cancers and precursor lesions. Published studies have shown that it is subject to both false negative and false positive results. The pap test should not be used as the sole means to diagnose or exclude pre-malignant and malignant lesions. Cytology is screened and interpreted at [facility] - [address], [place] [address] and [facility] - [address]; [place] [address] and [facility] - [address]; [place] [address] and [facility] [address]; [place] [address] 12/19/2018 2:11 PM CDT [facility] Other (Cervical) Non-Blood / Unknown 12/06/2018 1:15 PM CDT 12/06/2018 1:33 PM CDT Arabella RAMAN PATHOLOGY/CYTOLOGY Cecy l Result [facility] [address] [place] [address], [place] * ANTI HCV (05/20/2016 4:00 PM CDT) HEPATITIS C ANTIBODY Non-Reacti ve Non-Reacti ve 05/20/2016 8:47 PM CDT [facility] TR[facility] Blood BLOOD SPECIMEN / Unknown Venipuncture / Unknown 05/20/2016 4:00 PM CDT 05/20/2016 4:00 PM CDT Narrative [facility] - 05/20/2016 8:47 PM CDT Antibodies to HCV not detected; does not exclude the possibility of exposure to HCV. Arabella RAMAN SEND OUTS Final R esult [facility] [address] [place] [address], [place] * ANTI HIV 1/2 (05/20/2016 4:00 PM CDT) Pathologist [facility] HIV-1/HIV-2 ANTIBODY Non-Reacti ve Non-Reacti ve 05/20/2016 8:51 PM CDT [facility] Blood BLOOD SPECIMEN / Unknown Venipuncture / Unknown 05/20/2016 4:00 PM CDT 05/20/2016 4:00 PM CDT Narrative [facility] - 05/20/2016 8:51 PM CDT HIV-1 p24 and HIV-1/HIV-2 Ab not detected Arabella RAMAN SEND OUTS Final R esult [facility] [address] [place] [address], [place] from Last 3 Months or Most Recently Relevant to Health Maintenance Insurance [employer] Care Teams Title Insurance Examiner Relationship Specialty Start Date End Date Robinson Crook MD [address] [place] [address] PCP - General Family Practice 03/04/11
[2024-08-20 08:09] VITALS: BP 153/95; PULSE 103; RESP 16; TEMP 36.6; O2SAT 98; BMI 30.9
--- NOTE | 2024-08-20 08:29 | ED_ITS ---
HPI - Dental/Oral General Date Seen: 08/20/24 Chief complaint: Dental/Oral/Mouth Injury/Pain Stated complaint: mouth pain Time Seen by Provider: 08/20/24 08:13 Source: patient Mode of arrival: ambulatory Limitations: no limitations History of Present Illness HPI Narrative: Patient is a delightful 31-year-old female who presents here with a 1 month history of dental pain, she is taking Tylenol and ibuprofen for the discomfort, she notes that she feels that there is infection in her mouth, she has not noted any swelling, any problems with mouth opening, no chills associated with this. She reports a low level fever of 99?. She has been told in the past that she should have her wisdom teeth out, she know she has cavities there. Has not yet made an appointment to see the dentist. 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 She has no history of immunosuppressive diseases. No allergies to any antibiotics. Thinks that she needs an antibiotic for this. Complaint: tooth pain Onset (ago): week(s) Duration: constant Severity: moderate Relieving factors: NSAIDs Exacerbating factors: chewing and drinking fluids Context: history of dental caries Associated symptoms: fever Treatment prior to arrival: none and oral analgesic Related Data Home Medications ?Medication ?Instructions ?Recorded ?Confirmed sumatriptan succinate 50 mg tablet mg PO 08/20/24 Previous Rx's ?Medication ?Instructions ?Recorded amoxicillin 875 mg tablet 875 mg PO BID #28 tabs 08/20 Allergies Allergy/AdvReac Type Severity Reaction Status Date / Time No Known Drug Allergies Allergy Verified 08/20/24 08:13 Review of Systems Status of ROS: Reports: 10 or more systems reviewed and unremarkable except as noted in History and below PFSH PFS Social History Smoking Status: Former smoker Do you use any of these nicotine containing products: E-Cigarettes and Vaping Products Second hand tobacco smoke exposure: No How often do you have a drink containing alcohol: 2-3 times a week How often do you have six or more drinks on one occasion: Less than monthly AUDIT-C Alcohol total score: 4 Non-prescribed substance use: denies use service: No Exam Narrative: Exam Narrative: On examination she is seen in room 4 she is in no apparent distress, is very slightly tachycardic I think from anxiety of the situation. Her temperature is normal, her vital signs are reasonable. 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 She does have cavities noted in her wisdom teeth bilaterally. Both upper and lower. I do not see any evidence of any abscess formation, there is a little bit of gingival redness noted primarily in the left upper where she localizes the most of her discomfort. The floor of her mouth is quiet. No other tenderness noted. Her abscess noted. No lymphadenopathy. Const: Vital Signs, click to edit/add: Vital Signs - 24 hr 08/20/24 08:09 Temperature 97.8 F Pulse Rate [Pulse Oximeter] 103 H Respiratory Rate 16 Blood Pressure [Ri ght Upper Arm] 153/95 H Pulse Oximetry 98 Oxygen Delivery Me thod Room Air Documenting provider has reviewed patient's vital signs: yes Course Vital Signs Vital signs: Initial Vital Signs Temperature 97.8 F 08/20/24 08:09 Temperature Source Temporal Artery Scan 08/20/24 08:09 Pulse Rate 103 H 08/20/24 08:09 Respiratory Rate 16 08/20/24 08:09 Blood Pressure 153/95 H 08/20/24 08:09 Blood Pressure Mean 114 H 08/20/24 08:09 Blood Pressure Position Sitting 08/20/24 08:09 Pulse Oximetry 98 08/20/24 08:09 Oxygen Delivery Method Room Air 08/20/24 08:09 Vital Signs Temperature 97.8 F 08/20/24 08:09 Pulse Rate 103 H 08/20/24 08:09 Respiratory Rate 16 08/20/24 08:09 Blood Pressure 153/95 H 08/20/24 08:09 Pulse Oximetry 98 08/20/24 08:09 Oxygen Delivery Method Room Air 08/20/24 08:09 Temperature 97.8 F 08/20/24 08:09 Pulse Rate 103 H 08/20/24 08:09 Respiratory Rate 16 08/20/24 08:09 Blood Pressure 153/95 H 08/20/24 08:09 Pulse Oximetry 98 08/20/24 08:09 Oxygen Delivery Method Room Air 08/20/24 08:09 MDM - Dental/Oral MDM Narrative Medical decision making narrative: I discussed with her that this is likely cavities, with a little bit of gingivitis, there may be some low level infection of her gums also. I think she would benefit from an antibiotic. We will use something to cover the primary mouth organisms which amoxicillin does very well. B.i.d. dosing will be use for 14 days. We talked about dosages of Tylenol ibuprofen so she does not take too much. And warning signs when she should come in I do not see any evidence of an abscess, I do not think we need to do advanced imaging like a CT or possible drainage here. She was comfortable this plan, and returning here she will make an appointment tomorrow in [place] with her dentist. Differential Diagnosis Differential diagnosis: Likely gingival abscess, dental caries, toothache, dental abscess, fracture of tooth and aphthous ulcer Medical Records Attestation: I reviewed the patient's medical records. Discharge Plan Discharge Clinical Impression: Toothache, Dental caries, Fracture of tooth Patient Disposition: Home, Self-Care Condition: Stable Instructions: Toothache (ED) Additional Instructions: Home rest continue the Tylenol and ibuprofen, your doses should be 1 g of Tylenol every 8 hours, and also the ibuprofen 800 mg every 8 hours, you can break it up into smaller doses but please do not exceed these in the 24 hour. The antibiotics will help the discomfort is often times these type of infections can cause pain, please take the antibiotics fully for the full 14 days, return here if facial swelling inability to open mouth, high fevers or any other stigmata that would make you worried. Prescriptions: New amoxicillin 875 mg tablet 875 mg PO BID Qty: 28 0RF No Action sumatriptan succinate 50 mg tablet PO Follow Up/Referrals: Robinson Crook MD [Primary Care Provider, Family Practice] Stand Alone Forms: Your [facility] Info Instructions
== END 2024-08-20 08:36 | disposition home or self-care (01) ==
LOC: ED 08:29
PROVIDERS: Emergency Provider Family Medicine; PCP Family Medicine
DX: K02.9 Dental caries, unspecified (principal)
CPT/HCPCS: 99283